=== PATIENT | male | born 1970 | race Caucasian/White ===

== ENCOUNTER 2024-08-10 22:46 | Emergency (ER) | payer SELFPAY ==
[2024-08-10 22:48] VITALS: BP 155/75
[2024-08-10 23:24] VITALS: BMI 26.1
[2024-08-10 23:26] VITALS: BP 148/85
--- NOTE | 2024-08-11 01:21 | ED.GENMED ---
History of Present Illness
General
Chief Complaint: Skin Problem
Source: patient
Exam Limitations: none
Time Seen by Provider: 08/11/24 00:17
Nursing documentation reviewed up to this point in time: agreed with
History of Present Illness
History of Present Illness:
53-year-old male presents emergency department due to swelling and a lump in the left lower back for the past 2 to 3 days. He denies any fevers. He was told it was red. It hurt when he rolled on top of it.
Past History
Past History
ED Past Medical History: Other (Cervical Herniated discs, arthritis)
ED Past Surgical History: Other ([place] teeth)
Social History
Tobacco: Non-smoker
Alcohol: None
Personal: Single
Living: with family
Employment: Employed
Family History
Family History: Negative Diabetes, Early CAD, CAD or Asthma
Review of Systems
Review of Systems
Allergies reviewed?: Yes
All Other Systems: Not applicable
Constitutional: Reports no symptoms; Denies fever
EENT: Reports no symptoms
Respiratory: Reports no symptoms
Cardiac: Reports no symptoms
ABD/GI: Reports no symptoms
: Reports no symptoms
Musculoskeletal: Reports no symptoms
Skin: Reports no symptoms
Neurological: Reports no symptoms
Endocrine: Reports no symptoms
Hematologic/Lymphatic: Reports no symptoms
Psychiatric: Reports no symptoms
Phy Exam
Physical Exam
Physical Exam:
Physical Exam
General: no apparent distress, not acutely ill
Neck: supple. no meningeal signs. normal posterior pharynx
Heart: equal radial pulses.
HEENT: Pupils equal round reactive to light, EOMI
Lungs: no acute respiratory distress.
Abdomen: normal bowel sounds. not tender. no CVAT
Neuro: alert and oriented. no focal neurological deficits
Skin: no rash, abscess 4 cm left lower back
Psychiatric: well kept. interactive and cooperative
Extremities: no edema. no calf tenderness. negative homans. good distal pulses
Course
Vital Signs
Initial and Last Documented VS:
Initial Vital Signs
Temp Pulse Resp BP Pulse Ox
98 F 80 20 155/75 99
08/10/24 22:48 08/10/24 22:48 08/10/24 22:48 08/10/24 22:48 08/10/24 22:48
Last Documented Vital Signs
Temp Pulse Resp BP Pulse Ox
97.6 F 82 20 148/85 96
08/10/24 23:26 08/10/24 23:26 08/10/24 22:48 08/10/24 23:26 08/10/24 23:26
Procedures
Incision/Drainage/Joint Aspiration
Left Lower Back:
Anethesia: 1% Lidocaine with Epi
Preparation: cleaned with Betadine
Type of procedure: incise and drain
Nature of site: abscess
Description of abscess: greater than 3cm, complex and involves multiple areas
Loculations broken up: Yes
How much fluid was obtained?: number in mls (10)
Fluid description: purulent
Treatment: left open for drainage and antibiotics started
MDM/Problems Addressed
Differential Diagnosis Includes:
Abscess, sebaceous cyst
MDM/Problems Addressed:
53-year-old male with abscess left back, incision and drainage complete, Keflex started. Stable for discharge.
*Pulse Oximetry
Patient hypoxic: no
*Critical Care Note
Total Time (30-74mins, 75-104mins- exclusive of procedures): Not Applicable
Patient Management
Social determinants of health affecting care: Living situation and Strong social support
Escalation/DeEscalation of care consider admission/obs:
admit not indicated
ED Attending Note
-
Portions of this chart may have been created with voice recognition software.� Occasional wrong word or��sound alike� substitutions may have occurred due to the inherent limitations of voice recognition software.
Discharge Plan
Departure
Patient Disposition: Home (Routine Discharge)
Date of Disposition: 08/11/24
Time of Disposition: 01:29
Patient with high blood pressure during this ER visit?: Yes
Discharge Problem:
Abscess of skin
Instructions: BLOOD PRESSURE, Skin Abscess
Prescriptions:
New
cephalexin 500 mg capsule
500 mg PO BID 7 Days Qty: 14 0RF
No Action
Testosterone
1 dose INJ .WEEKLY
multivitamin 1 EACH tablet
1 ea PO .Q48H
acetaminophen [Tylenol Extra Strength] 500 MG tablet
1,000 mg PO Q6HPRN PRN (Reason: pain)
Creatine
5 mg PO DAILY
ibuprofen 200 MG tablet
400 - 600 mg PO Q6HPRN PRN (Reason: moderate pain) Qty: 1 0RF
oxycodone 5 MG tablet
5 mg PO Q4HPRN PRN (Reason: breakthrough/severe pain) Qty: 15 0RF
valacyclovir [Valtrex] 1 gram tablet
1,000 mg PO TID Qty: 21 0RF
prednisone 50 mg tablet
50 mg PO DAILY Qty: 4 0RF
Referrals:
Richa Loco DO [Family Provider] -
Aiden Armstrong MD [Active] - Call in 1-3 days for appt
Interventions
Interventions:
*Risk Screen - Suicide Last Done: 08/10/24 22:48
*General Assessment Last Done: 08/10/24 22:48
*Neglect/Abuse Screening Last Done: 08/10/24 22:48
*ED- Fall Risk Assessment Last Done: 08/10/24 23:26
*ED COVID-19 Vaccine History Last Done: 08/10/24 23:26
ED-Skin Assessment Last Done: 08/10/24 23:26
Discharge Date and Time
Print Language: MOLDOVAN
[2024-08-11] MEDS: KEFLEX 500 MG PO (01:40)
[2024-08-11 01:44] VITALS: BP 153/98
== END 2024-08-11 01:45 | disposition home or self-care (01) ==
LOC: EMR 22:46
PROVIDERS: EMERGENCY PHYSICIAN Emergency Medicine; FAMILY PHYSICIAN Internal Medicine
DX: L02.212 Cutaneous abscess of back [any part, except buttock and flank] (principal); R03.0 Elevated blood-pressure reading, without diagnosis of hypertension; M19.90 Unspecified osteoarthritis, unspecified site
CPT/HCPCS: 99283; 10060